=== PATIENT | female | born 1990 | race Caucasian/White ===

== ENCOUNTER 2016-10-08 13:03 | Emergency (ER) | payer OTHER ==
--- NOTE | 2016-10-08 14:41 | ER Document Report ---
HPI - HPI Patient complains to provider of: medication side effects Onset: Other - 2 weeks Onset/Duration: Persistent Quality of pain: No pain Pain Level: Denies Context: Patient states that she started a new oral control pill 2 weeks ago and feels that she is having adverse side effects due to the medication. Patient states 2 days ago she did have some dizziness that is now resolved. Patient also reports headache pain off and on for the past week although currently does not have any headache. Patient states that she has had nightmares that cause her to wake up with panic attack. Patient reports decreased appetite, increased irritability, and increased fatigue. Patient last took medication today. Patient states she had similar reaction to a previous control that she had to be switched from in the past. Patient denies any suicidal or homicidal ideation. Associated Symptoms: Headache, Other - Fatigue, nightmares Exacerbated by: Denies Relieved by: Denies Similar symptoms previously: Yes - after taking oral contraceptive Recently seen / treated by doctor: No - ROS ROS below otherwise negative: Yes Systems Reviewed and Negative: Yes All other systems reviewed and negative - CONSTITUTIONAL Constitutional: DENIES: Fever, Chills - NEURO Neurology: REPORTS: Headache. DENIES: Weakness - GASTROINTESTINAL Gastrointestinal: DENIES: Nausea, Patient vomiting - REPRODUCTIVE Reproductive: DENIES: : - MUSCULOSKELETAL Musculoskeletal: DENIES: Back Pain, Neck Pain - DERM Skin Color: Normal Skin Problems: None Past Medical History - General Information source: Patient - Social History Smoking Status: Current Some Day Smoker Frequency of alcohol use: Social Drug Abuse: None Lives with: Friend Family History: None Patient has suicidal ideation: No Patient has homicidal ideation: No Pulmonary Medical History: Reports: Hx Asthma Renal/ Medical History: Denies: Hx Peritoneal Dialysis Surgical Hx: Negative - Immunizations Hx Diphtheria, Pertussis, Tetanus Vaccination: No Vertical Provider Document - CONSTITUTIONAL Agree With Documented VS: Yes Exam Limitations: No Limitations General Appearance: WD/WN, No Apparent Distress Notes: Normal mood and affect - INFECTION CONTROL TRAVEL OUTSIDE OF THE [place] IN LAST 30 DAYS: No - HEENT HEENT: Atraumatic, Normal ENT Exam, Normocephalic, PERRLA - NECK Neck: Normal Inspection - RESPIRATORY Respiratory: Breath Sounds Normal, No Respiratory Distress, Chest Non-Tender O2 Sat by Pulse Oximetry: 99 - CARDIOVASCULAR Cardiovascular: Regular Rate, Regular Rhythm, No Murmur - BACK Back: Normal Inspection - MUSCULOSKELETAL/EXTREMETIES Musculoskeletal/Extremeties: BENITO GARCIA - NEURO Level of Consciousness: Awake, Alert, Appropriate - DERM Integumentary: Warm, Dry Course - Vital Signs Vital signs: Temp Pulse Resp BP Pulse Ox 98.3 F 86 18 151/87 H 99 10/08/16 13:17 10/08/16 13:17 10/08/16 13:17 10/08/16 13:17 10/08/16 13:17 Discharge - Discharge Clinical Impression: Medication adverse effect, Hx of headache, History of nightmares Fatigue Qualifiers: Fatigue type: unspecified Qualified Code(s): R53.83 - Other fatigue Condition: Stable Disposition: HOME, SELF-CARE Instructions: Headache ([facility]), Medication Side Effects ([facility]) Additional Instructions: Return immediately for any new or worsening symptoms Follow up with a primary doctor to recheck your blood pressure in 1-2 days Follow-up with the mental health provider for any continued problems with anxiety or nightmares Recheck with Dr. Perez on Wednesday as planned Do not take anymore. control pill, use a backup control method such as condoms or abstinence Referrals: [facility] [Provider Group] - Follow up as needed HALLIE PEREZ MD [EMERITUS] - 10/12/16 [facility] [Provider Group] - Follow up tomorrow
[2016-10-08 15:13] VITALS: BP 116/71
== END 2016-10-08 15:12 | disposition home or self-care (01) ==
LOC: ER 13:03
DX: G44.40 Drug-induced headache, not elsewhere classified, not intractable (principal); R53.83 Other fatigue; T38.4X5A Adverse effect of oral contraceptives, initial encounter; G47.8 Other sleep disorders; R45.4 Irritability and anger; R42 Dizziness and giddiness; R63.0 Anorexia; J45.909 Unspecified asthma, uncomplicated; F17.200 Nicotine dependence, unspecified, uncomplicated; Z86.69 Personal history of other diseases of the nervous system and sense organs
CPT/HCPCS: 99283